=== PATIENT | male | born 1980 ===

== ENCOUNTER → 2017-11-03 | Outpatient (REF) | payer MEDICARE | LOC: ZZSENDIN 12:00 | PROVIDERS: ATTEND Nurse Practitioner Family | DX: R11.2 Nausea with vomiting, unspecified (principal); R27.8 Other lack of coordination; F32.9 Major depressive disorder, single episode, unspecified; G47.00 Insomnia, unspecified; J96.21 Acute and chronic respiratory failure with hypoxia | CPT/HCPCS: 88305 ==

== ENCOUNTER → 2017-12-27 | Outpatient (REF) | payer MEDICARE | LOC: ZZSENDIN 08:00 | PROVIDERS: ATTEND Nurse Practitioner Family | DX: L98.8 Other specified disorders of the skin and subcutaneous tissue (principal) | CPT/HCPCS: 88305 ==